=== PATIENT | female | born 1960 | race Caucasian/White ===

== ENCOUNTER 2023-07-19 19:11 | Inpatient (IN) | payer MEDICARE, OTHER, SELFPAY ==
[2023-07-19] VITALS (14 sets, daily range): BP systolic 100–133; BP diastolic 45–82; BMI 40.9; BMI 38.7
[2023-07-19] MEDS: DUONEB 3 ML INH ×2 (13:25→15:53)
--- NOTE | 2023-07-19 14:13 | ED.GENMED ---
History of Present Illness
General
Chief Complaint: Cold/Flu/URI Symptoms
Source: patient, ambulance crew and care home
Exam Limitations: none
Time Seen by Provider: 07/19/23 12:04
Nursing documentation reviewed up to this point in time: agreed with
Travel History
Have you had any contact with someone who has COVID-19?: No
Do you have any symptoms of coronavirus? Fever > 100 degrees, chills, cough, shortness of breath, sore throat, loss of taste or smell, muscle aches, or headache?: Yes
Symptoms:: cough
History of Present Illness
History of Present Illness:
62-year-old female with past medical history of diabetes and schizophrenia presenting to the emergency department from [facility] with concerns of upper respiratory symptoms and feeling generalized weakness over the past few
weeks denies specific symptoms otherwise denies any chest pain nausea vomiting abdominal. She has noted some wheezing and shortness of breath.
Past History
Past History
ED Past Medical History: Psychiatric (Schizophrenia)
ED Past Surgical History: Gynecological (Tubal ligation)
Social History
Tobacco: Non-smoker
Alcohol: None
Review of Systems
Review of Systems
Allergies reviewed?: Yes
All Other Systems: ROS reviewed and negative except as documented in HPI and ROS
Phy Exam
Physical Exam
Physical Exam:
GENERAL: Alert , in no apparent distress
EYE: pupils equal and reactive
NECK: Supple, no significant adenopathy.
ENT: o/p clr, mmm.
CARDIAC: Regular rate and rhythm .
LUNGS: Expiratory wheezing diffusely otherwise good air movement
ABDOMEN: Soft, without focal tenderness, no r/g, no cvat
NEUROLOGICAL: Alert and oriented, no focal neuro deficits
SKIN: Warm and dry, skin intact.
MUSCULOSKELETAL: No edema, well perfused.
PSYCH: Normal and appropriate interaction.
Course
Orders/Labs/Results
Orders:
Orders
07/19/23 12:46
Dexamethasone Sod Phosphate [Decadron] 10 mg IV NOW STA
Ipratropium/Albuterol Sulfate [Duoneb] 3 ml INH R NOW STA
CR Chest - 2 Views Urgent
Comment:
Reason For Exam: sob
07/19/23 14:45
Urinalysis Reflex To Culture Urgent
Date Specimen was Collected: 07/19/23
Time Specimen was Collected: 14:33
Urine Microscopic Reflex Cult Urgent
Urine Culture Urgent
SHILPI Source: U
Specimen Description:
Date Specimen was Collected: 07/19/23
Time Specimen was Collected: 14:33
07/19/23 14:46
Complete Blood Count/With Diff Urgent
Comprehensive Metabolic Panel Urgent
Lactic Acid Q4H
Comment: CANCEL 2nd LACTIC ACID IF 1st LACTIC ACID IS LESS THAN 2
07/19/23 15:41
Ipratropium/Albuterol Sulfate [Duoneb] 3 ml INH R NOW ONE
07/19/23 15:56
COVID-19 Antigen Urgent
Source: Nasal Swab
Lactic Acid Q4H
Comment: CANCEL 2nd LACTIC ACID IF 1st LACTIC ACID IS LESS THAN 2
Influenza A+B Rapid Molecular Urgent
SHILPI Source: Nasal Swab
Specimen Description:
Abnormal Lab Results
07/19/23 07/19/23
14:45 14:46
Hgb 10.1 L g/dL
(12.0-16.0)
Hct 32.3 L %
(37.0-47.0)
MCV 73.9 L fL
(81.0-99.0)
MCH 23.1 L pg
(27.0-31.0)
MCHC 31.3 L g/dL
(33.0-37.0)
RDW 18.9 H %
(11.5-14.5)
Absolute Monos (auto) 0.8 H 10^3/uL
(0.1-0.6)
Lymphocytes % 16.7 L %
(20.5-51.1)
Monocytes % 10.6 H %
(1.7-9.3)
Glucose 116 H mg/dl
(70-99)
Total Protein 6.2 L g/dl
(6.3-8.2)
Urine Nitrite (Reflex) Positive A
(Negative)
Leukocyte Esterase Rfl 2+ A
(Negative)
Urine WBC (Reflex) 11-15 A /HPF
(0-5)
Urine Bacteria (Reflex) Moderate A
(Negative)
07/19/23 14:46
07/19/23 14:46
Vital Signs
Initial and Last Documented VS:
Initial Vital Signs
Temp Pulse Resp BP Pulse Ox
99.7 F 91 20 131/82 96
07/19/23 11:58 07/19/23 11:58 07/19/23 11:58 07/19/23 11:58 07/19/23 11:58
Last Documented Vital Signs
Temp Pulse Resp BP Pulse Ox
99.7 F 99 24 100/49 100
07/19/23 11:58 07/19/23 16:15 07/19/23 16:15 07/19/23 16:00 07/19/23 16:15
MDM/Problems Addressed
MDM/Problems Addressed:
62-year-old female presenting to the emergency department today with concerns of generalized weakness fatigue as well as upper respiratory symptoms over the past few days. Upon arrival here vital signs are normal patient in no distress patient does
have expiratory wheezing diffusely consistent with potential asthma exacerbation. She was started on nebulizer treatment as well as steroid. Symptoms improving after treatment however patient did get up to go to the bathroom and pulse ox dropping
into the 80s and patient felt short of breath. Given additional dose of DuoNeb will be admitted for further treatment. She also tested positive for the flu but otherwise labs unremarkable.
*Critical Care Note
Total Time (30-74mins, 75-104mins- exclusive of procedures): Not Applicable
ED Attending Note
-
Portions of this chart may have been created with voice recognition software.� Occasional wrong word or��sound alike� substitutions may have occurred due to the inherent limitations of voice recognition software.
Discharge Plan
Departure
Patient Disposition: Admit
Date of Disposition: 07/19/23
Time of Disposition: 16:58
Admit to: Telemetry
Admit to doctor: Natasha
Presentation/result/management discussed w/ accepting MD/DO: Hospitalist
Patient with high blood pressure during this ER visit?: No
Condition: Good
Covid-19: Not Applicable
Discharge Problem:
Wheeze, Influenza
Prescriptions:
No Action
doxycycline hyclate 100 mg capsule
100 mg PO BID Qty: 14 0RF
Referrals:
PRIVATE,PHYSICIAN [Family Provider] -
Interventions
Interventions:
ED- Pulmonary Assessment Last Done: 07/19/23 12:04
[2023-07-19] MEDS: DECADRON 10 MG IV (14:41)
[2023-07-19 14:56] LABS: % Basophils 0.7 % (0-2); % Eosinophils 5.3 % (0-6); % Immature Granulocytes 0.5 % (0-0.5); % Lymphocytes 16.7 % (20.5-51.1); % Monocytes 10.6 % (1.7-9.3); % Neutrophils 66.2 % (42.2-75.2); Absolute Basophils 0.1 10^3/uL (0-0.2); Absolute Eosinophils 0.4 10^3/uL (0-0.7); Absolute Lymphocytes 1.3 10^3/uL (1.2-3.4); Absolute Monocytes 0.8 10^3/uL (0.1-0.6); Hematocrit 32.3 % (37.0-47.0); Hemoglobin 10.1 g/dL (12.0-16.0); Mean Corp Hgb Conc. 31.3 g/dL (33.0-37.0); Mean Corpuscular Hgb 23.1 pg (27.0-31.0); Mean Corpuscular Volume 73.9 fL (81.0-99.0); Mean Platelet Volume 8.5 fL (7.4-10.4); Nucleated Red Blood Cells % 0 %; Platelet Count 272 10^3/uL (130-400); Red Blood Cell Count 4.37 10^6/uL (4.20-5.40); Red Cell Dist. Width 18.9 % (11.5-14.5); White Blood Cell Count 7.6 10^3/uL (4.8-10.8)
[2023-07-19 14:58] LABS: Urine Albumin Negative (Neg - Trace); Urine Bilirubin Negative (Negative); Urine Character Clear (Clear); Urine Color Yellow; Urine Glucose Negative (Negative); Urine Ketone Negative (Negative); Urine Leukocyte 2+ (Negative); Urine Nitrite Positive (Negative); Urine Occult Blood Negative (Negative); Urine Urobilinogen Negative (Neg - 1+)
[2023-07-19 15:12] LABS: Urine Amorphous Seen; Urine Squamous Cell >30 /LPF (Few)
[2023-07-19 15:14] LABS: Urine Bacteria Moderate (Negative); Urine Red Blood Cell 0-2 /HPF (0-2)
[2023-07-19 15:15] LABS: Lactic Acid 1.6 mmol/L (0.7-2.0)
[2023-07-19 15:30] LABS: ALT (SGPT) 15 U/L (0-35); AST (SGOT) 15 U/L (14-36); Albumin 3.6 g/dl (3.5-5.0); Alkaline Phosphatase 84 U/L (38-126); Blood Urea Nitrogen 11 mg/dl (7-17); Calcium 8.4 mg/dl (8.4-10.2); Carbon Dioxide 29 mmol/L (22-30); Chloride 102 mmol/L (98-107); Estimated Creatinine Clearance 113 ml/min; Glucose 116 mg/dl (70-99); Potassium 3.9 mmol/L (3.5-5.1); Sodium 136 mmol/L (135-145); Total Bilirubin 0.4 mg/dl (0.2-1.3); Total Protein 6.2 g/dl (6.3-8.2); eGFR > 60.00
--- NOTE | 2023-07-19 16:06 | HPS.HSE ---
Family Physician
-
Family Physician: PHYSICIAN PRIVATE
Chief Complaint
-
Shortness of breath
History of Present Illness
Poor historian most if not all history from records ED sign out and primary contact report
62 female [id number]-[id number] diabetes schizophrenia, from [facility], hypertension, hypothyroidism, asthma presents with generalized weakness exertional dyspnea wheezing reported fever unclear onset. Patient reports that
she has bad shortness of breath fever for a 'long time.' Afebrile during evaluation here. Shortness of breath was noted to improve following DuoNeb therapy. However patient exhibited significant exertional dyspnea desaturating to 80s on
ambulation prompting referral for admission. Patient awake alert oriented only to self. Discussed with patient's primary contact Shira, onset of shortness of breath start in the morning triggering prompt referral to ED. No recent fever was
noted. CXR noted atelectasis otherwise no acute abn's. Labs noted mild microcytic anemia. Patient was found to be Flu positive.
Medical History
Past Medical History
Past Medical History: Reports Other (as above)
Past Surgical History: Reports Other (as above)
Social History
Tobacco: Former Smoker
Alcohol: None
Drug: None
Family History
Family History: Unable to Obtain (poor historian)
Allergies / Home Medications
Allergies reflects when Allergies were last updated in [facility].
Home Medications with original date entered in [facility] [employer]
Allergy/Medication List:
Allergies
Allergy/AdvReac Type Severity Reaction Status Date / Time
Penicillins Allergy Unknown Verified 07/19/23 12:02
Home Medications
acetaminophen 325 mg tablet 325 - 650 mg PO Q6H PRN mild pain/fever 07/19/23
albuterol sulfate 90 mcg/actuation aerosol inhaler 2 puff inhalation R Q4HPRN PRN sob/wheezing 07/19/23
amantadine HCl 100 mg capsule 100 mg PO BID 07/19/23
amlodipine 10 mg tablet 10 mg PO DAILY 07/19/23
aspirin 81 mg tablet,delayed release 81 mg PO DAILY 07/19/23
calcium carbonate 300 mg (750 mg) chewable tablet (Tums) 300 - 600 mg PO QID PRN indigestion/heartburn 07/19/23
clonazepam 1 mg tablet 1 mg PO TID 07/19/23
clozapine 100 mg tablet 300 mg PO HS 07/19/23
clozapine 50 mg tablet 50 mg PO DAILY 07/19/23
divalproex 500 mg tablet,extended release 24 hr 500 mg PO HS 07/19/23
famotidine 20 mg tablet 20 mg PO Q12H PRN heartburn/gi issues 07/19/23
lactase 9,000 unit chewable tablet (Dairy Relief) 9,000 - 18,000 unit PO AC 07/19/23
levothyroxine 50 mcg tablet 50 mcg PO DAILY 07/19/23
melatonin 3 mg tablet 3 mg PO HS 07/19/23
metformin 500 mg tablet 1,000 mg PO BID@0800,1400 07/19/23
oxybutynin chloride 5 mg tablet 5 mg PO BID 07/19/23
sertraline 25 mg tablet 25 mg PO DAILY 07/19/23
simvastatin 40 mg tablet 40 mg PO HS 07/19/23
trazodone 50 mg tablet 50 mg PO HS 07/19/23
Review of Systems
-
Unable to obtain full review of systems at this time due to: Other (Poor historian review of system unreliable)
Physical Exam
Vital Signs
Vital Signs
Temp Pulse Resp BP Pulse Ox
99.7 F 96 23 126/59 96
07/19/23 11:58 07/19/23 14:59 07/19/23 14:59 07/19/23 14:59 07/19/23 14:59
Physical Exam
General: Other (as below)
Laboratory Results
-
07/19/23 14:46
07/19/23 14:46
Laboratory Results
Lactic Acid 1.6 mmol/L (0.7-2.0) 07/19/23 14:46
Total Bilirubin 0.4 mg/dl (0.2-1.3) 07/19/23 14:46
AST 15 U/L (14-36) 07/19/23 14:46
ALT 15 U/L (0-35) 07/19/23 14:46
Alkaline Phosphatase 84 U/L (38-126) 07/19/23 14:46
Impression/Plan
-
Physical Exam
General: No pallor, cyanosis, or jaundice. Obese
HEENT: Throat clear. PERRLA Normocephalic atraumatic
NECK: Supple. No JVD Carotid Bruits
RESPIRATORY: wheezing
CVS: sinus tachy
ABDOMEN: Soft, non-tender. No distension. BS+/normal.
EXTREMITIES: No peripheral cyanosis or edema.
COMMONWEALTH ATTORNEY: AOx1 oriented to person only verbal but doesn't always make sense (appears near baseline per discussion with primary contact)
IMPRESSION:
Poor historian most if not all history from records ED sign out and primary contact report
62 female [id number]-[id number] diabetes schizophrenia, from [facility], hypertension, hyperlipidemia, hypothyroidism, overactive bladder, asthma presents with generalized weakness exertional dyspnea wheezing reported fever
unclear onset. Patient reports that she has bad shortness of breath fever for a 'long time.' Afebrile during evaluation here. Shortness of breath was noted to improve following DuoNeb therapy. However patient exhibited significant exertional
dyspnea desaturating to 80s on ambulation prompting referral for admission. Patient awake alert oriented only to self. Discussed with patient's primary contact Shira, onset of shortness of breath start in the morning triggering prompt referral
to ED. No recent fever was noted. CXR noted atelectasis otherwise no acute abn's. Labs noted mild microcytic anemia. Patient was found to be Flu positive.
PLAN:
#Flu
#Asthma exacerbation
Telemetry admitted
Oxygen supplementation as needed
Nebulizer Xopenex 3 times daily instead of albuterol due to tachycardia
Tamiflu 75 mg twice daily, plan for 5 days
IV steroids Decadron 4 mg every 8, taper as tolerated
#Hypertension
Continue home amlodipine with holding parameters
#Hypothyroidism
Continue home Synthroid
#Schizophrenia
Continue home clonazepam clonidine sertraline trazodone valproate
#Overactive bladder
Continue oxybutynin
PT OT eval
Case management consult discharge planning
DVT prophylaxis Lovenox
GI prophylaxis Famotidine
Meds reconciled and resume as appropriate
Discussed with primary contact Shira as listed in [facility] [employer]
I spent a total of 77 minutes with the patient or on the floor. More than 50% of this time involved counseling and coordination of care.
[2023-07-19 16:23] LABS: Lactic Acid 1.2 mmol/L (0.7-2.0)
[2023-07-19 16:32] LABS: COVID-19 Antigen Negative (Negative)
[2023-07-19] MEDS: XOPENEX 1.25 MG INHALANT SOLUTION INH (21:43)
[2023-07-19] MEDS: DITROPAN 5 MG PO (22:27)
[2023-07-19] MEDS: PEPCID 20 MG PO (22:28)
[2023-07-19] MEDS: SYMMETREL 100 MG PO (22:30)
[2023-07-19] MEDS: TAMIFLU 75 MG PO (22:32)
[2023-07-19] MEDS: DECADRON 4 MG IV (22:33)
[2023-07-19] MEDS: CLOZARIL 300 MG PO (22:40)
[2023-07-19] MEDS: DEPAKOTE ER (24 HR RELEASE) 500 MG PO (22:42)
[2023-07-19] MEDS: DESYREL 50 MG PO (22:44)
[2023-07-19] MEDS: KLONOPIN 1 MG PO (22:45)
[2023-07-19] MEDS: LIPITOR 20 MG PO (22:46)
[2023-07-19] MEDS: MELATONIN 3 MG PO (22:47)
[2023-07-20 03:09] VITALS: BP 126/71
[2023-07-20] MEDS: DECADRON 4 MG IV ×2 (04:57→13:03)
[2023-07-20 05:24] LABS: Hematocrit 33.8 % (37.0-47.0); Hemoglobin 10.5 g/dL (12.0-16.0); Mean Corp Hgb Conc. 31.1 g/dL (33.0-37.0); Mean Corpuscular Hgb 22.8 pg (27.0-31.0); Mean Corpuscular Volume 73.5 fL (81.0-99.0); Mean Platelet Volume 8.7 fL (7.4-10.4); Platelet Count 307 10^3/uL (130-400); Red Cell Dist. Width 18.8 % (11.5-14.5); White Blood Cell Count 5.8 10^3/uL (4.8-10.8)
[2023-07-20 05:38] LABS: Blood Urea Nitrogen 15 mg/dl (7-17); Calcium 8.7 mg/dl (8.4-10.2); Carbon Dioxide 26 mmol/L (22-30); Chloride 106 mmol/L (98-107); Estimated Creatinine Clearance 109 ml/min; Glucose 152 mg/dl (70-99); Iron 35 ug/dl (37-170); Magnesium 2.1 mg/dl (1.6-2.3); Potassium 4.5 mmol/L (3.5-5.1); Sodium 139 mmol/L (135-145); eGFR > 60.00
[2023-07-20 05:47] LABS: Percent Saturation 8 % (20-50); Total Iron Binding Capacity 423 ug/dl (265-497)
[2023-07-20 06:00] VITALS: BMI 38.6
[2023-07-20] MEDS: SYNTHROID 50 MCG PO (06:13)
[2023-07-20 06:34] LABS: Vitamin B12 421 pg/ml (239-931)
[2023-07-20 07:00] VITALS: BP 140/79
--- NOTE | 2023-07-20 07:35 | W.PN.HOSP.TC ---
Today's Communication/Plan
-
steroids bronchodilators tamiflu
wean oxygen supplementation as tolerated
clonopin reduced to 0.75 mg TID d/t lethargy
PT/OT
Assessment / Plan
Assessment / Plan
Physical Exam
General: No pallor, cyanosis, or jaundice. Obese
HEENT: Throat clear. PERRLA Normocephalic atraumatic
NECK: Supple. No JVD Carotid Bruits
RESPIRATORY: wheezing
CVS: sinus tachy
ABDOMEN: Soft, non-tender. No distension. BS+/normal.
EXTREMITIES: No peripheral cyanosis or edema.
TRACK EQUIPMENT OPERATOR: AOx1 oriented to person only verbal but doesn't always make sense (appears near baseline per discussion with primary contact)
IMPRESSION:
Poor historian most if not all history from records ED sign out and primary contact report
62 female [id number] diabetes schizophrenia, from [facility], hypertension, hyperlipidemia, hypothyroidism, overactive bladder, asthma presents with generalized weakness exertional dyspnea wheezing reported fever
unclear onset.� Patient reports that she has bad shortness of breath fever for a 'long time.'� Afebrile during evaluation here.� Shortness of breath was noted to improve following DuoNeb therapy.� However patient exhibited significant exertional
dyspnea desaturating to 80s on ambulation prompting referral for admission.� Patient awake alert oriented only to self.� Discussed with patient's primary contact Shira, onset of shortness of breath start in the morning triggering prompt referral
to ED.� No recent fever was noted. CXR noted atelectasis otherwise no acute abn's.� Labs noted mild microcytic anemia.� Patient was found to be Flu positive.
PLAN:
#Flu
#Asthma exacerbation
Telemetry admitted
Oxygen supplementation as needed
Nebulizer Xopenex 3 times daily instead of albuterol due to tachycardia
Tamiflu 75 mg twice daily, plan for 5 days
IV steroids Decadron 4 mg every 8, taper as tolerated
#Hypertension
Continue home amlodipine with holding parameters
#Hypothyroidism
Continue home Synthroid
#Schizophrenia
Continue home clonazepam clonidine sertraline trazodone valproate
home klonopin reduced to 0.75 mg TID from 1 mg due to lethargy
#Overactive bladder
Continue oxybutynin
PT OT eval SNF rehab
Case management consult discharge planning
DVT prophylaxis Lovenox
GI prophylaxis Famotidine
Meds reconciled and resume as appropriate
I spent a total of� 56� � minutes with the patient or on the floor. More than 50% of this time involved counseling and coordination of care.
Anticipated Discharge: 24 - 48 hours
Subjective/Interval History
-
Date of Service: July 20, 2023
Lethargic but arousable. Fluent speech but tangential. Reports having leprosy of legs. no obvious signs leprosy noted on observation.
Objective Data
-
Labs:
Laboratory Results
07/20/23
05:05
WBC 5.8
Hgb 10.5 L
Hct 33.8 L
Plt Count 307
Sodium 139
Potassium 4.5
Chloride 106
Carbon Dioxide 26
BUN 15
Creatinine 0.5 L
Glucose 152 H
Calcium 8.7
Vital Signs:
Vital Signs
Temp Pulse Resp BP Pulse Ox
98.0 F 81 22 126/71 95
07/20/23 03:09 07/20/23 03:09 07/20/23 03:09 07/20/23 03:09 07/20/23 03:09
I&O
07/19/23 07/20/23 07/21/23
06:59 06:59 06:59
Intake Total 420 / 420
Balance 420 / 420
[2023-07-20] MEDS: XOPENEX 1.25 MG INHALANT SOLUTION INH ×3 (07:52→19:44)
[2023-07-20] MEDS: TAMIFLU 75 MG PO ×2 (09:00→20:57)
[2023-07-20] MEDS: SYMMETREL 100 MG PO ×2 (09:00→20:56)
[2023-07-20] MEDS: GLUCOPHAGE 1000 MG PO ×2 (09:01→13:04)
[2023-07-20] MEDS: ZOLOFT 25 MG PO (09:01)
[2023-07-20] MEDS: NORVASC 10 MG PO (09:01)
[2023-07-20] MEDS: ASPIR LOW (ENTERIC COATED) 81 MG PO (09:01)
[2023-07-20] MEDS: KLONOPIN 1 MG PO (09:01)
[2023-07-20] MEDS: DITROPAN 5 MG PO ×2 (09:02→20:56)
[2023-07-20] MEDS: CLOZARIL 50 MG PO (09:02)
[2023-07-20] MEDS: PEPCID 20 MG PO ×2 (09:02→20:57)
[2023-07-20] MEDS: LACTAID 1 CAPSULE PO ×2 (09:02→13:03)
[2023-07-20] MEDS: FEOSOL 325 MG PO (09:04)
[2023-07-20 11:00] VITALS: BP 126/65
[2023-07-20 15:00] VITALS: BP 138/67
[2023-07-20] MEDS: LACTAID PO (16:40)
[2023-07-20] MEDS: KLONOPIN PO (16:41)
--- NOTE | 2023-07-20 16:45 | CM ---
Received notification from Isidra at [facility] who stated that patient is current with their services. Will fax new referral for [facility].
Plan: Case management will continue to follow and assist with discharge planning. Will fax [facility].
[2023-07-20] MEDS: LOVENOX 40 MG SC (17:16)
[2023-07-20 19:00] VITALS: BP 114/53
[2023-07-20] MEDS: DEPAKOTE ER (24 HR RELEASE) 500 MG PO (20:57)
[2023-07-20] MEDS: KLONOPIN 0.75 MG PO (21:06)
[2023-07-20] MEDS: MELATONIN 3 MG PO (21:07)
[2023-07-20] MEDS: DESYREL 50 MG PO (21:07)
[2023-07-20] MEDS: LIPITOR 20 MG PO (21:07)
[2023-07-20] MEDS: CLOZARIL 300 MG PO (21:33)
[2023-07-20 23:00] VITALS: BP 96/48
[2023-07-21 03:00] VITALS: BP 134/70
--- NOTE | 2023-07-21 05:05 | VATNOTE ---
VAT attempted to draw morning labs from [facility], patient refused. This VAT RN explained to patient she did not need to get a needle to check for a blood return for lab work patient still refused. Primary RN notified. No labs obtained at this time,
unknown if [facility] has a blood return.
[2023-07-21 06:00] VITALS: BMI 39.2
[2023-07-21 07:00] VITALS: BP 149/84
[2023-07-21] MEDS: SYNTHROID 50 MCG PO (07:21)
--- NOTE | 2023-07-21 07:36 | W.PN.HOSP.TC ---
Today's Communication/Plan
-
steroid tapered to Prednisone to start tomorrow
wean oxygen supplementation as tolerated
cont tamiflu
discharge planning SNF rehab
Assessment / Plan
Assessment / Plan
Physical Exam
General: No pallor, cyanosis, or jaundice. Obese
HEENT: Throat clear. PERRLA Normocephalic atraumatic
NECK: Supple. No JVD Carotid Bruits
RESPIRATORY: wheezing
CVS: sinus tachy
ABDOMEN: Soft, non-tender. No distension. BS+/normal.
EXTREMITIES: No peripheral cyanosis or edema.
RESOURCE CONSERVATIONIST: AOx1 oriented to person only verbal but doesn't always make sense (appears near baseline per discussion with primary contact)
IMPRESSION:
Poor historian most if not all history from records ED sign out and primary contact report
62 female [id number]-[id number] diabetes schizophrenia, from [facility], hypertension, hyperlipidemia, hypothyroidism, overactive bladder, asthma presents with generalized weakness exertional dyspnea wheezing reported fever
unclear onset.� Patient reports that she has bad shortness of breath fever for a 'long time.'� Afebrile during evaluation here.� Shortness of breath was noted to improve following DuoNeb therapy.� However patient exhibited significant exertional
dyspnea desaturating to 80s on ambulation prompting referral for admission.� Patient awake alert oriented only to self.� Discussed with patient's primary contact Shira, onset of shortness of breath start in the morning triggering prompt referral
to ED.� No recent fever was noted. CXR noted atelectasis otherwise no acute abn's.� Labs noted mild microcytic anemia.� Patient was found to be Flu positive.
PLAN:
#Flu
#Asthma exacerbation
Telemetry admitted
Oxygen supplementation as needed
Nebulizer Xopenex 3 times daily instead of albuterol due to tachycardia
Tamiflu 75 mg twice daily, plan for 5 days
IV steroids Decadron 4 mg every 8 tapered to Q12 tolerated well, further tapered to prednisone 40 mg daily
#Hypertension
Continue home amlodipine with holding parameters
#Hypothyroidism
Continue home Synthroid
#Schizophrenia
Continue home clonazepam clonidine sertraline trazodone valproate
home klonopin reduced to 0.75 mg TID from 1 mg due to lethargy, continue 0.75
#Overactive bladder
Continue oxybutynin
PT OT eval SNF rehab
Case management consult discharge planning
DVT prophylaxis Lovenox
GI prophylaxis Famotidine
Meds reconciled and resume as appropriate
I spent a total of� 56� � minutes with the patient or on the floor. More than 50% of this time involved counseling and coordination of care.
Anticipated Discharge: 24 - 48 hours
Subjective/Interval History
-
Date of Service: July 21, 2023
Appears more alert and communicative today. Doesn't always make sense but seems baseline for patient per reports.
Objective Data
-
Labs:
Laboratory Results
07/21/23
06:00
WBC Pending
Hgb Pending
Hct Pending
Plt Count Pending
Sodium Pending
Potassium Pending
Chloride Pending
Carbon Dioxide Pending
BUN Pending
Creatinine Pending
Glucose Pending
Calcium Pending
Vital Signs:
Vital Signs
Temp Pulse Resp BP Pulse Ox
97.6 F 76 16 134/70 95
07/21/23 03:00 07/21/23 03:00 07/21/23 03:00 07/21/23 03:00 07/21/23 03:00
I&O
07/20/23 07/21/23 07/22/23
06:59 06:59 06:59
Intake Total 420 / 420 330 / 330
Balance 420 / 420 330 / 330
[2023-07-21] MEDS: XOPENEX 1.25 MG INHALANT SOLUTION INH ×3 (07:57→19:29)
[2023-07-21] MEDS: ASPIR LOW (ENTERIC COATED) 81 MG PO (09:02)
[2023-07-21] MEDS: SYMMETREL 100 MG PO ×2 (09:02→20:47)
[2023-07-21] MEDS: GLUCOPHAGE 1000 MG PO ×2 (09:02→13:00)
[2023-07-21] MEDS: TAMIFLU 75 MG PO ×2 (09:02→20:49)
[2023-07-21] MEDS: FEOSOL 325 MG PO (09:02)
[2023-07-21] MEDS: DITROPAN 5 MG PO ×2 (09:02→20:46)
[2023-07-21] MEDS: CLOZARIL 50 MG PO (09:03)
[2023-07-21] MEDS: ZOLOFT 25 MG PO (09:03)
[2023-07-21] MEDS: NORVASC 10 MG PO (09:04)
[2023-07-21] MEDS: PEPCID 20 MG PO ×2 (09:04→20:51)
[2023-07-21] MEDS: KLONOPIN 0.75 MG PO ×3 (09:04→22:39)
[2023-07-21] MEDS: DECADRON 4 MG IV ×2 (09:05→20:39)
[2023-07-21] MEDS: LACTAID 1 CAPSULE PO ×3 (09:05→16:06)
[2023-07-21 11:00] VITALS: BP 147/83
[2023-07-21 15:00] VITALS: BP 136/78
[2023-07-21] MEDS: LOVENOX 40 MG SC (17:55)
[2023-07-21 19:00] VITALS: BP 105/71
[2023-07-21] MEDS: CLOZARIL 300 MG PO (22:33)
[2023-07-21] MEDS: DEPAKOTE ER (24 HR RELEASE) 500 MG PO (22:35)
[2023-07-21] MEDS: DESYREL 50 MG PO (22:36)
[2023-07-21 22:50] VITALS: BP 135/81
[2023-07-21] MEDS: MELATONIN 3 MG PO (22:50)
[2023-07-21] MEDS: LIPITOR 20 MG PO (22:50)
[2023-07-22 03:00] VITALS: BP 114/53
[2023-07-22 03:47] VITALS: BMI 39.2
[2023-07-22] MEDS: SYNTHROID 50 MCG PO (06:17)
--- NOTE | 2023-07-22 07:19 | W.PN.HOSP.TC ---
Today's Communication/Plan
-
steroid taper
Tamiflu
Medically stable for discharge SNF rehab pending placement
Assessment / Plan
Assessment / Plan
Physical Exam
General: No pallor, cyanosis, or jaundice. Obese
HEENT: Throat clear. PERRLA Normocephalic atraumatic
NECK: Supple. No JVD Carotid Bruits
RESPIRATORY: wheezing
CVS: sinus tachy
ABDOMEN: Soft, non-tender. No distension. BS+/normal.
EXTREMITIES: No peripheral cyanosis or edema.
PRODUCT MGR: AOx1 oriented to person only verbal but doesn't always make sense (appears near baseline per discussion with primary contact)
IMPRESSION:
Poor historian most if not all history from records ED sign out and primary contact report
62 female qwj-svnumnu-fufrbzyqi diabetes schizophrenia, from [facility], hypertension, hyperlipidemia, hypothyroidism, overactive bladder, asthma presents with generalized weakness exertional dyspnea wheezing reported fever
unclear onset.� Patient reports that she has bad shortness of breath fever for a 'long time.'� Afebrile during evaluation here.� Shortness of breath was noted to improve following DuoNeb therapy.� However patient exhibited significant exertional
dyspnea desaturating to 80s on ambulation prompting referral for admission.� Patient awake alert oriented only to self.� Discussed with patient's primary contact Shira, onset of shortness of breath start in the morning triggering prompt referral
to ED.� No recent fever was noted. CXR noted atelectasis otherwise no acute abn's.� Labs noted mild microcytic anemia.� Patient was found to be Flu positive.
PLAN:
#Flu
#Asthma exacerbation
Telemetry admitted
Nebulizer Xopenex 3 times daily instead of albuterol due to tachycardia, patient since improved, xopenex converted to prn
Tamiflu 75 mg twice daily, plan for 5 days
IV steroids Decadron 4 mg every 8 tapered to Q12 tolerated well, further tapered to prednisone 40 mg daily
#Hypertension
Continue home amlodipine with holding parameters
#Hypothyroidism
Continue home Synthroid
#Schizophrenia
Continue home clonazepam clonidine sertraline trazodone valproate
home klonopin reduced to 0.75 mg TID from 1 mg due to lethargy, continue 0.75
#Overactive bladder
Continue oxybutynin
PT OT eval SNF rehab
Case management consult discharge planning
DVT prophylaxis Lovenox
GI prophylaxis Famotidine
Medically stable for discharge SNF rehab pending placement
I spent a total of� 56� � minutes with the patient or on the floor. More than 50% of this time involved counseling and coordination of care.
Anticipated Discharge: Within 24 hours
Subjective/Interval History
-
Date of Service: July 22, 2023
Weaned off oxygen supplementation saturating well on room air. Home oxygen assessment noted no needs
Objective Data
-
Vital Signs:
Vital Signs
Temp Pulse Resp BP Pulse Ox
98 F 69 16 114/53 95
07/22/23 03:00 07/22/23 03:00 07/22/23 03:00 07/22/23 03:00 07/22/23 03:00
I&O
07/21/23 07/22/23 07/23/23
06:59 06:59 06:59
Intake Total 330 / 330 1010 / 1010
Balance 330 / 330 1010 / 1010
[2023-07-22] MEDS: XOPENEX 1.25 MG INHALANT SOLUTION INH ×3 (07:30→19:32)
[2023-07-22 07:54] VITALS: BP 139/81
[2023-07-22 08:12] VITALS: O2SAT 91; O2SAT 95
--- NOTE | 2023-07-22 08:13 | RESPNOTE ---
Attempted to perform ambulatory pulse ox on patient as per MD order. Patient requires significant two person assist to get out of bed. Patient unable to ambulate more than 15ft with rolling walker. Spo2 maureen RA resting 95%. Spo2 on ambulation on room
air 91%. Required no oxygen for duration of ambulation attempt.
[2023-07-22] MEDS: GLUCOPHAGE 1000 MG PO ×2 (08:36→15:19)
[2023-07-22] MEDS: ASPIR LOW (ENTERIC COATED) 81 MG PO (08:36)
[2023-07-22] MEDS: SYMMETREL 100 MG PO ×2 (08:36→20:23)
[2023-07-22] MEDS: DELTASONE 40 MG PO (08:36)
[2023-07-22] MEDS: CLOZARIL 50 MG PO (08:36)
[2023-07-22] MEDS: TAMIFLU 75 MG PO ×2 (08:36→20:24)
[2023-07-22] MEDS: LACTAID 1 CAPSULE PO ×3 (08:36→15:19)
[2023-07-22] MEDS: KLONOPIN 0.75 MG PO ×3 (08:36→21:17)
[2023-07-22] MEDS: FEOSOL 325 MG PO (08:36)
[2023-07-22] MEDS: NORVASC 10 MG PO (08:37)
[2023-07-22] MEDS: DITROPAN 5 MG PO ×2 (08:37→20:23)
[2023-07-22] MEDS: PEPCID 20 MG PO ×2 (08:37→20:24)
[2023-07-22] MEDS: ZOLOFT 25 MG PO (08:37)
[2023-07-22 11:00] VITALS: BP 126/65
[2023-07-22 15:00] VITALS: BP 139/69
[2023-07-22] MEDS: TUMS 2 TABLET PO (16:07)
[2023-07-22] MEDS: LOVENOX 40 MG SC (17:23)
[2023-07-22] MEDS: LIPITOR 20 MG PO (21:17)
[2023-07-22] MEDS: DEPAKOTE ER (24 HR RELEASE) 500 MG PO (21:18)
[2023-07-22] MEDS: MELATONIN 3 MG PO (21:18)
[2023-07-22] MEDS: CLOZARIL 300 MG PO (21:18)
[2023-07-22] MEDS: DESYREL 50 MG PO (21:33)
[2023-07-23 00:14] VITALS: BP 133/80
[2023-07-23] MEDS: SYNTHROID 50 MCG PO (05:35)
[2023-07-23 06:00] VITALS: BMI 37.8
[2023-07-23 07:40] VITALS: BP 127/78
--- NOTE | 2023-07-23 08:07 | W.PN.HOSP.TC ---
Today's Communication/Plan
-
Continue Tamiflu. Continue oral tapering steroids course. Discharge planning in progress.
Assessment / Plan
Assessment / Plan
Physical Exam
General: No pallor, cyanosis, or jaundice. Obese
HEENT: Throat clear. PERRLA Normocephalic atraumatic
NECK: Supple. No JVD Carotid Bruits
RESPIRATORY: wheezing
CVS: sinus tachy
ABDOMEN: Soft, non-tender. No distension. BS+/normal.
EXTREMITIES: No peripheral cyanosis or edema.
ANESTHETIST: AOx1 oriented to person only verbal but doesn't always make sense (appears near baseline per prior physician eval)
A/P:
#Flu
#Asthma exacerbation
Telemetry admitted
Nebulizer Xopenex 3 times daily instead of albuterol due to tachycardia, patient since improved, xopenex converted to prn
Tamiflu 75 mg twice daily, plan for 5 days
IV steroids Decadron 4 mg every 8 tapered to Q12 tolerated well, further tapered to prednisone 40 mg daily
#Hypertension
Continue home amlodipine with holding parameters
#Hypothyroidism
Continue home Synthroid
#Schizophrenia
Continue home clonazepam clonidine sertraline trazodone valproate
home klonopin reduced to 0.75 mg TID from 1 mg due to lethargy, continue 0.75
#Overactive bladder
Continue oxybutynin
PT OT eval SNF rehab
Case management consult discharge planning
DVT prophylaxis Lovenox
GI prophylaxis Famotidine
Medically stable for discharge SNF rehab pending placement
Anticipated Discharge: 24 - 48 hours
Subjective/Interval History
-
Date of Service: July 23, 2023
Patient seen and examined. Denies shortness of breath. Afebrile
Objective Data
-
Vital Signs:
Vital Signs
Temp Pulse Resp BP Pulse Ox
97.8 F 73 18 127/78 95
07/23/23 07:40 07/23/23 07:40 07/23/23 07:40 07/23/23 07:40 07/23/23 07:40
I&O
07/22/23 07/23/23 07/24/23
06:59 06:59 06:59
Intake Total 1010 / 1010 2420 / 2420
Balance 1010 / 1010 2420 / 2420
[2023-07-23] MEDS: DELTASONE 40 MG PO (08:11)
[2023-07-23] MEDS: SYMMETREL 100 MG PO ×2 (08:11→19:49)
[2023-07-23] MEDS: ZOLOFT 25 MG PO (08:11)
[2023-07-23] MEDS: GLUCOPHAGE 1000 MG PO ×2 (08:11→14:43)
[2023-07-23] MEDS: KLONOPIN 0.75 MG PO ×3 (08:11→22:57)
[2023-07-23] MEDS: CLOZARIL 50 MG PO (08:11)
[2023-07-23] MEDS: ASPIR LOW (ENTERIC COATED) 81 MG PO (08:11)
[2023-07-23] MEDS: NORVASC 10 MG PO (08:12)
[2023-07-23] MEDS: TAMIFLU 75 MG PO ×2 (08:12→19:59)
[2023-07-23] MEDS: PEPCID 20 MG PO ×2 (08:12→20:05)
[2023-07-23] MEDS: DITROPAN 5 MG PO ×2 (08:12→19:46)
[2023-07-23] MEDS: FEOSOL 325 MG PO (08:12)
[2023-07-23] MEDS: LACTAID 1 CAPSULE PO ×3 (08:15→17:02)
--- NOTE | 2023-07-23 09:39 | CM ---
Addendum entered by LORAINE Fish 07/23/23 14:03:
Sent Referrals to the following facilities with the knowledge of Niru from [facility]: [facility], [facility], [facility], [facility], [facility], [facility], [facility], [facility], [facility], and [facility].
Will need patient's guardian's signature on PASSR if accepting facility is found.
Original Note:
Reviewed chart, placed a call to [facility] to determine patient's baseline and if she can return there. Call was answered by the food checkers and cashiers supervisor, Niru who was able to provide some background. Patient lives at [facility] as part of [facility] which is their group
home. The residential has no steps to enter and one flight inside when the elevator is not working which is often. Niru expressed that patient has difficulty navigating steps. She has a dx Schizophrenia and Alzheimer's. She has a guardian named, Gwyn
Jeevan # [phone]. He handles of patient's affairs.
Niru stated that they were in the process of trying to find an NH for patient as her care has surpassed that of which the residential can handle. She needs assistance with bathing, dressing, personal care, toileting and all other ADLs. She uses a
walker for short distances and a w/c for community distances.
She has a bulk gas specialist who helps with cooking, cleaning, laundry and other supervising appraiser.
Per Niru, patient has 'behaviors' and can alternate between being loud and calm. Niru stated that when patient is calm she has a very sweet demeanor.
Per food checkers and cashiers supervisor patient has no friends or family. She does have three sons all of whom she lost custody of when she was young (the children were infants) and therefore she has very minimal contact with them.
Niru stated that patient would be unable to return to the residential and would need to be placed in an NH setting-possibly usp. She did go to [facility] in the past and she was current with [facility].
Niru confirmed that although patient needs transfer to an NH, she will still be a part of their services and the facility will continue to provide support, advocacy and the care that they can. As patient is deconditioned from her baseline, of which
the staff there already was having difficulty handling, per Niru she would not be able to return to their residential until she could at least get to the point that she was previous to what she was like prior to admission so patient may be a roasterman
care resident.
Niru was advised of level 2 PASSR requirements and she confirmed that patient's guardian will sign all necessary paperwork. She stated that her direct number is her cell, [phone]
Plan: Case management will continue to follow and assist with discharge planning. Will need SNF possible LTC. Patient will need a level 2 assessment and guardian will have to review and sign all paperwork.
[2023-07-23 15:33] VITALS: BP 135/81
[2023-07-23] MEDS: LOVENOX 40 MG SC (17:03)
[2023-07-23] MEDS: CLOZARIL 300 MG PO (22:48)
[2023-07-23] MEDS: DEPAKOTE ER (24 HR RELEASE) 500 MG PO (22:52)
[2023-07-23] MEDS: DESYREL 50 MG PO (22:54)
[2023-07-23] MEDS: LIPITOR 20 MG PO (23:08)
[2023-07-23] MEDS: MELATONIN 3 MG PO (23:09)
[2023-07-23 23:19] VITALS: BP 147/64
[2023-07-24 05:52] VITALS: BMI 38.2
[2023-07-24] MEDS: SYNTHROID 50 MCG PO (06:05)
[2023-07-24 07:00] VITALS: BP 140/65
--- NOTE | 2023-07-24 08:12 | W.PN.HOSP.TC ---
Today's Communication/Plan
-
Continue current management. Discharge planning in progress.
Assessment / Plan
Assessment / Plan
Physical Exam
General: No pallor, cyanosis, or jaundice. Obese
HEENT: Throat clear. PERRLA Normocephalic atraumatic
NECK: Supple. No JVD Carotid Bruits
RESPIRATORY: wheezing
CVS: sinus tachy
ABDOMEN: Soft, non-tender. No distension. BS+/normal.
EXTREMITIES: No peripheral cyanosis or edema.
FLAME HARDENING MACHINE OPERATOR: AOx1 oriented to person only verbal but doesn't always make sense (appears near baseline per prior physician eval)
A/P:
#Flu
#Asthma exacerbation
Telemetry admitted
Nebulizer Xopenex 3 times daily instead of albuterol due to tachycardia, patient since improved, xopenex converted to prn
Tamiflu 75 mg twice daily, plan for 5 days
IV steroids changed to oral
Currently prednisone 40 mg p.o. daily and will taper tomorrow down to 30 mg.
#Hypertension
Continue home amlodipine with holding parameters
#Hypothyroidism
Continue home Synthroid
#Schizophrenia
Continue home clonazepam clonidine sertraline trazodone valproate
home klonopin reduced to 0.75 mg TID from 1 mg due to lethargy, continue 0.75
#Overactive bladder
Continue oxybutynin
PT OT eval SNF rehab
Case management consult discharge planning
DVT prophylaxis Lovenox
GI prophylaxis Famotidine
Medically stable for discharge SNF rehab pending placement
Anticipated Discharge: Today
Subjective/Interval History
-
Date of Service: July 24, 2023
Patient feels well. No shortness of breath or cough.
Objective Data
-
Vital Signs:
Vital Signs
Temp Pulse Resp BP Pulse Ox
97.6 F 62 16 140/65 93
02/27/24 07:00 07/24/23 07:00 07/24/23 07:00 07/24/23 07:00 07/24/23 07:00
I&O
07/23/23 07/24/23 07/25/23
06:59 06:59 06:59
Intake Total 2420 / 2420 1020 / 1020
Output Total 725 / 725
Balance 2420 / 2420 295 / 295
Review of Systems
-
All other systems: Reviewed and negative
[2023-07-24] MEDS: ASPIR LOW (ENTERIC COATED) 81 MG PO (08:19)
[2023-07-24] MEDS: SYMMETREL 100 MG PO ×2 (08:19→20:09)
[2023-07-24] MEDS: NORVASC 10 MG PO (08:19)
[2023-07-24] MEDS: PEPCID 20 MG PO ×2 (08:19→20:09)
[2023-07-24] MEDS: LACTAID 1 CAPSULE PO ×3 (08:19→17:10)
[2023-07-24] MEDS: DELTASONE 40 MG PO (08:20)
[2023-07-24] MEDS: GLUCOPHAGE 1000 MG PO ×2 (08:20→13:03)
[2023-07-24] MEDS: CLOZARIL 50 MG PO (08:20)
[2023-07-24] MEDS: TAMIFLU 75 MG PO ×2 (08:20→20:09)
[2023-07-24] MEDS: FEOSOL 325 MG PO (08:20)
[2023-07-24] MEDS: DITROPAN 5 MG PO ×2 (08:20→20:09)
[2023-07-24] MEDS: KLONOPIN 0.75 MG PO ×3 (08:20→22:23)
[2023-07-24] MEDS: ZOLOFT 25 MG PO (08:21)
[2023-07-24 11:21] VITALS: BP 146/74
--- NOTE | 2023-07-24 13:16 | CM ---
Placed a call to patient's Guardian, Gwyn, who answered and stated that he can sign paperwork for patient. He requested that all faxes be faxed to [phone]. Faxed all forms to Gwyn.
Met with attending who signed his portion.
Will await for return fax from guardian so that fax can be sent to the [facility].
Plan: Case management will continue to follow and assist with discharge planning. Bed available at [facility].
[2023-07-24 15:00] VITALS: BP 123/57
[2023-07-24] MEDS: LOVENOX 40 MG SC (17:11)
[2023-07-24] MEDS: XOPENEX 1.25 MG INHALANT SOLUTION INH (19:24)
[2023-07-24] MEDS: DESYREL 50 MG PO (22:24)
[2023-07-24] MEDS: MELATONIN 3 MG PO (22:24)
[2023-07-24] MEDS: LIPITOR 20 MG PO (22:24)
[2023-07-24] MEDS: DEPAKOTE ER (24 HR RELEASE) 500 MG PO (22:24)
[2023-07-24] MEDS: CLOZARIL 300 MG PO (22:24)
[2023-07-24 23:40] VITALS: BP 146/74
[2023-07-25 00:21] VITALS: BP 146/74
[2023-07-25] MEDS: SYNTHROID 50 MCG PO (06:09)
[2023-07-25 06:33] LABS: Hematocrit 36.5 % (37.0-47.0); Hemoglobin 11.4 g/dL (12.0-16.0)
[2023-07-25 06:41] LABS: Blood Urea Nitrogen 20 mg/dl (7-17); Calcium 9.3 mg/dl (8.4-10.2); Carbon Dioxide 31 mmol/L (22-30); Chloride 102 mmol/L (98-107); Estimated Creatinine Clearance 93 ml/min; Glucose 114 mg/dl (70-99); Potassium 4.5 mmol/L (3.5-5.1); Sodium 139 mmol/L (135-145); eGFR > 60.00
[2023-07-25 07:15] VITALS: BP 126/57
--- NOTE | 2023-07-25 08:02 | W.PN.HOSP.TC ---
Today's Communication/Plan
-
Continue current management. Discharge planning in progress.
Assessment / Plan
Assessment / Plan
Physical Exam
General: No pallor, cyanosis, or jaundice. Obese
HEENT: Throat clear. PERRLA Normocephalic atraumatic
NECK: Supple. No JVD Carotid Bruits
RESPIRATORY: wheezing
CVS: sinus tachy
ABDOMEN: Soft, non-tender. No distension. BS+/normal.
EXTREMITIES: No peripheral cyanosis or edema.
MEAT SEAFOOD ASSOCIATE: AOx1 oriented to person only verbal but doesn't always make sense (appears near baseline per prior physician eval)
A/P:
#Flu
#Asthma exacerbation
Telemetry can be d/c'ed
Nebulizer Xopenex 3 times daily instead of albuterol due to tachycardia, patient since improved, xopenex converted to prn
Tamiflu --> completed 5 days
IV steroids changed to oral as below
Currently prednisone down to 30 mg p.o. daily.
#Hypertension
Continue home amlodipine with holding parameters
#Hypothyroidism
Continue home Synthroid
#Schizophrenia
Continue home clonazepam clonidine sertraline trazodone valproate
home klonopin reduced to 0.75 mg TID from 1 mg due to lethargy, continue 0.75
#Overactive bladder
Continue oxybutynin
PT OT eval SNF rehab
Case management consult discharge planning
DVT prophylaxis Lovenox
GI prophylaxis Famotidine
Medically stable for discharge SNF rehab pending placement
Anticipated Discharge: Today
Subjective/Interval History
-
Date of Service: July 25, 2023
Patient denies any chest pain or shortness of breath.
Objective Data
-
Labs:
Laboratory Results
07/25/23
05:56
Hgb 11.4 L
Hct 36.5 L
Sodium 139
Potassium 4.5
Chloride 102
Carbon Dioxide 31 H
BUN 20 H
Creatinine 0.7
Glucose 114 H
Calcium 9.3
Vital Signs:
Vital Signs
Temp Pulse Resp BP Pulse Ox
96.7 F L 61 16 126/57 94
07/25/23 07:15 07/25/23 07:15 07/25/23 07:15 07/25/23 07:15 07/25/23 07:15
I&O
07/24/23 07/25/23 07/26/23
06:59 06:59 06:59
Intake Total 1020 / 1020 1660 / 1660
Output Total 725 / 725 2450 / 2450
Balance 295 / 295 -790 / -790
[2023-07-25] MEDS: PEPCID 20 MG PO ×2 (08:35→19:43)
[2023-07-25] MEDS: ZOLOFT 25 MG PO (08:35)
[2023-07-25] MEDS: ASPIR LOW (ENTERIC COATED) 81 MG PO (08:35)
[2023-07-25] MEDS: GLUCOPHAGE 1000 MG PO ×2 (08:35→14:12)
[2023-07-25] MEDS: DITROPAN 5 MG PO ×2 (08:35→19:42)
[2023-07-25] MEDS: FEOSOL 325 MG PO (08:36)
[2023-07-25] MEDS: NORVASC 10 MG PO (08:36)
[2023-07-25] MEDS: CLOZARIL 50 MG PO (08:36)
[2023-07-25] MEDS: DELTASONE 30 MG PO (08:36)
[2023-07-25] MEDS: KLONOPIN 0.75 MG PO ×3 (08:41→21:34)
[2023-07-25] MEDS: SYMMETREL 100 MG PO ×2 (08:45→19:42)
[2023-07-25] MEDS: LACTAID 1 CAPSULE PO ×3 (08:45→16:32)
--- NOTE | 2023-07-25 09:12 | CM ---
Addendum entered by LORAINE Fish 07/25/23 15:18:
Placed a call to office on aging and spoke with a workforce services representative, named, Michelle who confirmed receipt of fax and stated that a dependency case manager will call back with a time to do the level 2 assessment.
Original Note:
Received fax from sid Pascal's guardian, who completed all the forms that were faxed to him. Placed a call to Office on Aging and spoke with someone named, Lynette, who stated that the level 2 should be faxed to [phone]. Faxed all requested
documents. Will await return call from them so that they can facilitate on site visit.
Plan: Case management will continue to follow and assist with discharge planning. Once cleared by the [facility], patient's guardian in agreement with SNF at [facility].
[2023-07-25 15:00] VITALS: BP 107/52
[2023-07-25] MEDS: LOVENOX 40 MG SC (17:21)
[2023-07-25] MEDS: MELATONIN 3 MG PO (21:35)
[2023-07-25] MEDS: CLOZARIL 300 MG PO (21:35)
[2023-07-25] MEDS: LIPITOR 20 MG PO (21:35)
[2023-07-25] MEDS: DEPAKOTE ER (24 HR RELEASE) 500 MG PO (21:35)
[2023-07-25] MEDS: DESYREL 50 MG PO (21:35)
[2023-07-25 23:00] VITALS: BP 139/72
[2023-07-26] MEDS: SYNTHROID 50 MCG PO (06:02)
[2023-07-26 07:26] VITALS: BP 137/78
[2023-07-26] MEDS: GLUCOPHAGE 1000 MG PO ×2 (07:27→13:28)
[2023-07-26] MEDS: LACTAID 1 CAPSULE PO ×3 (07:27→15:59)
[2023-07-26] MEDS: ZOLOFT 25 MG PO (07:27)
[2023-07-26] MEDS: ASPIR LOW (ENTERIC COATED) 81 MG PO (07:27)
[2023-07-26] MEDS: CLOZARIL 50 MG PO (07:27)
[2023-07-26] MEDS: DITROPAN 5 MG PO ×2 (07:27→20:29)
[2023-07-26] MEDS: DELTASONE 30 MG PO (07:27)
[2023-07-26] MEDS: KLONOPIN 0.75 MG PO ×3 (07:28→21:32)
[2023-07-26] MEDS: FEOSOL 325 MG PO (07:28)
[2023-07-26] MEDS: SYMMETREL 100 MG PO ×2 (07:29→20:29)
[2023-07-26] MEDS: NORVASC 10 MG PO (07:33)
--- NOTE | 2023-07-26 07:38 | W.PN.HOSP.TC ---
Today's Communication/Plan
-
Continue current management. Discharge planning in progress.
Assessment / Plan
Assessment / Plan
Physical Exam
General: No pallor, cyanosis, or jaundice. Obese
HEENT: Throat clear. PERRLA Normocephalic atraumatic
NECK: Supple. No JVD Carotid Bruits
RESPIRATORY: wheezing
CVS: sinus tachy
ABDOMEN: Soft, non-tender. No distension. BS+/normal.
EXTREMITIES: No peripheral cyanosis or edema.
BRINE TANK OPERATOR: AOx1 oriented to person only verbal but doesn't always make sense (appears near baseline per prior physician eval)
A/P:
#Flu
#Asthma exacerbation
Telemetry can be d/c'ed
Nebulizer Xopenex 3 times daily instead of albuterol due to tachycardia, patient since improved, xopenex converted to prn
Tamiflu --> completed 5 days
IV steroids changed to oral as below
Currently prednisone down to 30 mg p.o. daily.
#Constipation
Start bowel regimen
#Hypertension
Continue home amlodipine with holding parameters
#Hypothyroidism
Continue home Synthroid
#Schizophrenia
Continue home clonazepam clonidine sertraline trazodone valproate
home klonopin reduced to 0.75 mg TID from 1 mg due to lethargy, continue 0.75
#Overactive bladder
Continue oxybutynin
PT OT eval SNF rehab
Case management consult discharge planning
DVT prophylaxis Lovenox
GI prophylaxis Famotidine
Medically stable for discharge SNF rehab pending placement
Anticipated Discharge: Today
Subjective/Interval History
-
Date of Service: July 26, 2023
No chest pain or shortness of breath. RN reports some constipation.
Objective Data
-
Vital Signs:
Vital Signs
Temp Pulse Resp BP Pulse Ox
97.9 F 60 16 137/78 91
07/26/23 07:26 07/26/23 07:26 07/26/23 07:26 07/26/23 07:26 07/26/23 07:26
I&O
07/25/23 07/26/23 07/27/23
06:59 06:59 06:59
Intake Total 1660 / 1660 900 / 900
Output Total 2450 / 2450 2150 / 2150
Balance -790 / -790 -1250 / -1250
[2023-07-26] MEDS: PEPCID 20 MG PO ×2 (07:45→20:29)
[2023-07-26 10:30] VITALS: BP 122/61; PULSE 68; O2SAT 94
[2023-07-26] MEDS: MIRALAX 17 GRAMS PO (11:32)
[2023-07-26] MEDS: COLACE 100 MG PO ×2 (11:32→20:29)
[2023-07-26 15:47] VITALS: BP 118/77
[2023-07-26] MEDS: LOVENOX 40 MG SC (17:41)
[2023-07-26] MEDS: DESYREL 50 MG PO (21:32)
[2023-07-26] MEDS: DEPAKOTE ER (24 HR RELEASE) 500 MG PO (21:32)
[2023-07-26] MEDS: MELATONIN 3 MG PO (21:32)
[2023-07-26] MEDS: LIPITOR 20 MG PO (21:33)
[2023-07-26] MEDS: CLOZARIL 300 MG PO (21:33)
[2023-07-26 23:03] VITALS: BP 128/66
[2023-07-27] MEDS: SYNTHROID 50 MCG PO (06:07)
[2023-07-27 08:00] VITALS: BP 131/85
--- NOTE | 2023-07-27 08:11 | W.PN.HOSP.TC ---
Today's Communication/Plan
-
Continue current management. Discharge planning in progress.
Assessment / Plan
Assessment / Plan
Physical Exam
General: No pallor, cyanosis, or jaundice. Obese
HEENT: Throat clear. PERRLA Normocephalic atraumatic
NECK: Supple. No JVD Carotid Bruits
RESPIRATORY: wheezing
CVS: sinus tachy
ABDOMEN: Soft, non-tender. No distension. BS+/normal.
EXTREMITIES: No peripheral cyanosis or edema.
MIXING AND MOLDING MACHINE OPERATOR: AOx1 oriented to person only verbal but doesn't always make sense (appears near baseline per prior physician eval)
A/P:
#Flu
#Asthma exacerbation
Telemetry can be d/c'ed
Nebulizer Xopenex 3 times daily instead of albuterol due to tachycardia, patient since improved, xopenex converted to prn
Tamiflu --> completed 5 days
IV steroids changed to oral as below
Currently prednisone down to 30 mg p.o. daily.
#Constipation
Continue bowel regimen
#Hypertension
Continue home amlodipine with holding parameters
#Hypothyroidism
Continue home Synthroid
#Schizophrenia
Continue home clonazepam clonidine sertraline trazodone valproate
home klonopin reduced to 0.75 mg TID from 1 mg due to lethargy, continue 0.75
assistant farm operations manager request psychiatry evaluation for placement--> consult to psychiatry today ([place] texted Dr. Puckett today on 07/26)
#Overactive bladder
Continue oxybutynin
PT OT eval SNF rehab
Case management consult discharge planning
DVT prophylaxis Lovenox
GI prophylaxis Famotidine
Medically stable for discharge SNF rehab pending placement
Anticipated Discharge: 24 - 48 hours
Subjective/Interval History
-
Date of Service: July 27, 2023
No behavioral agitation but does get restless at times and yells. No shortness of breath.
Objective Data
-
Vital Signs:
Vital Signs
Temp Pulse Resp BP Pulse Ox
97.8 F 65 18 128/66 93
07/26/23 23:03 07/26/23 23:03 07/26/23 23:03 07/26/23 23:03 07/26/23 23:03
I&O
07/26/23 07/27/23 07/28/23
06:59 06:59 06:59
Intake Total 900 / 900 1320 / 1320
Output Total 2150 / 2150 1450 / 1450
Balance -1250 / -1250 -130 / -130
[2023-07-27] MEDS: ASPIR LOW (ENTERIC COATED) 81 MG PO (08:14)
[2023-07-27] MEDS: ZOLOFT 25 MG PO (08:14)
[2023-07-27] MEDS: CLOZARIL 50 MG PO (08:14)
[2023-07-27] MEDS: SYMMETREL 100 MG PO ×2 (08:14→22:06)
[2023-07-27] MEDS: PEPCID 20 MG PO ×2 (08:14→22:09)
[2023-07-27] MEDS: GLUCOPHAGE 1000 MG PO ×2 (08:14→15:33)
[2023-07-27] MEDS: LACTAID 1 CAPSULE PO ×3 (08:14→16:29)
[2023-07-27] MEDS: FEOSOL 325 MG PO (08:15)
[2023-07-27] MEDS: DELTASONE 30 MG PO (08:15)
[2023-07-27] MEDS: DITROPAN 5 MG PO ×2 (08:15→22:09)
[2023-07-27] MEDS: NORVASC 10 MG PO (08:15)
[2023-07-27] MEDS: COLACE 100 MG PO ×2 (08:15→22:06)
[2023-07-27] MEDS: KLONOPIN 0.75 MG PO ×3 (08:16→22:10)
[2023-07-27] MEDS: MIRALAX 17 GRAMS PO (08:17)
--- NOTE | 2023-07-27 08:53 | CM ---
Addendum entered by LORAINE Fish 07/27/23 16:57:
Faxed updated referral with corrections and Psychiatry note. Will f/u with the office on aging first thing on Sunday to confirm receipt of all necessary documents.
Original Note:
Placed a call to the office on aging and call was answered by a sales support representative named, Afshan, who stated that she spoke with Kaela the supervisor corduroy cutting and she needs a little more information to be faxed. She stated that she emailed what she is misssing.
Will complete missing forms and return to Kaela.
Plan: Case management will continue to follow and assist with discharge planning. Will fax additional information to Kaela.
--- NOTE | 2023-07-27 11:53 | CON.MD ---
Consultation - Medical
-
patient seen chart reviewed. spoke with case mgt. nursing and with pharmacist. the patient is a 62 year old dx with schizophrenia who resides at the [facility]. she has been followed by [facility]. her current psych meds are as follows
Depakote 500 mg daily clozaril total 350 mg daily sertraline 25 mg daily and trazodone 50 mg daily. she had been taking klonopin one mg tid which was decreased to 0.75 mg tid as she appeared sedated. she is according to [facility] more alert at this point.
she was admitted with sob attributed to flu. she has been rx with bronchodilators tamiflu symmetrel and is improving. she did not appear in any physical distress. the patient is a notably poor historian. she is oriented to person only. when i told
her she was in a hospital she said 'which one.?' she when asked for the year told me she does not know what year it is. she offered no complaints. she is not having thoughts of harming self. she does hear voices in her head at times. she does not
experience command hallucinations rather they 'play hide and seek' although patient on zoloft she does not say she is depressed per se although affect quite constricted also a feature of schizophrenia
past psych hx checked the [facility] records. patient was last seen at [facility] by dr bosch. last date of service was 07/17/2023 at that time patient exhibited residual sx of schiz. she was noted by staff to be struggling with incontinence. also noted
adl's are slipping. the residence has been considering tf to a higher level of care which cw at is aware of. patient was referred to [facility] as a transfer from [facility] program. she had many hospitalizations in the past and lived at
[facility] for over a year until vt'ed to [facility] in 2000. she has been on many psych meds clozaril has apparently been the best for her
medical hx admitted for respiratory sx attributed to flu. patient w hx niddm overactive bladder hld htn hypothyroid copd gerd
fh sh non contributory
substance abuse none
mse alert oriented to person only. cognitively impaired either as a consequence of years of schizophrenia and /or other. pleasant. cooperative speech sparse. nl rate and tone. hears voices no command see above mood is neutral affect
constricted denies si insight judgment lacking
dx schizophrenia
plan agree with snf intervention perhaps as a prelude to superintendent marine oil terminal care. patient not presenting a risk to self or others . would continue meds as they are. might consider dc of zoloft or cutting klonopin back further but not imperative. check tsh
folic acid ecg for qtc which can happen with clozaril. psych will check in once over weekend and sign off if no further need for us.
[2023-07-27 14:59] VITALS: BP 130/69
[2023-07-27] MEDS: LOVENOX 40 MG SC (17:38)
--- NOTE | 2023-07-27 22:00 | PTCARENOTE ---
@2100; Attempted to do outstanding EKG. Pt refused to cooperate and did not want shirt lifted.@@2123 ;Instructed STEVEN Silva on above note.
[2023-07-27] MEDS: CLOZARIL 300 MG PO (22:07)
[2023-07-27] MEDS: DEPAKOTE ER (24 HR RELEASE) 500 MG PO (22:07)
[2023-07-27] MEDS: MELATONIN 3 MG PO (22:08)
[2023-07-27] MEDS: LIPITOR 20 MG PO (22:08)
[2023-07-27] MEDS: DESYREL 50 MG PO (22:10)
[2023-07-27 23:35] VITALS: BP 116/60
[2023-07-28] MEDS: SYNTHROID 50 MCG PO (05:06)
[2023-07-28 07:29] VITALS: BP 130/64
[2023-07-28] MEDS: COLACE 100 MG PO ×2 (08:00→22:37)
[2023-07-28] MEDS: ASPIR LOW (ENTERIC COATED) 81 MG PO (08:00)
[2023-07-28] MEDS: SYMMETREL 100 MG PO ×2 (08:00→22:38)
[2023-07-28] MEDS: DELTASONE 30 MG PO (08:00)
[2023-07-28] MEDS: ZOLOFT 25 MG PO (08:00)
[2023-07-28] MEDS: DITROPAN 5 MG PO ×2 (08:00→22:38)
[2023-07-28] MEDS: LACTAID 1 CAPSULE PO ×3 (08:00→16:36)
[2023-07-28] MEDS: GLUCOPHAGE 1000 MG PO ×2 (08:01→14:31)
[2023-07-28] MEDS: CLOZARIL 50 MG PO (08:01)
[2023-07-28] MEDS: KLONOPIN 0.75 MG PO ×3 (08:01→22:35)
[2023-07-28] MEDS: PEPCID 20 MG PO ×2 (08:01→22:37)
[2023-07-28] MEDS: NORVASC 10 MG PO (08:01)
[2023-07-28] MEDS: MIRALAX 17 GRAMS PO (08:02)
[2023-07-28] MEDS: FEOSOL 325 MG PO (08:02)
[2023-07-28 09:09] LABS: Folate 9.9 ng/ml (2.76-20)
--- NOTE | 2023-07-28 10:26 | W.PN.HOSP.TC ---
Today's Communication/Plan
-
Continue current management. Discharge planning in progress.
Assessment / Plan
Assessment / Plan
Physical Exam
General: No pallor, cyanosis, or jaundice. Obese
HEENT: Throat clear. PERRLA Normocephalic atraumatic
NECK: Supple. No JVD Carotid Bruits
RESPIRATORY: wheezing
CVS: sinus tachy
ABDOMEN: Soft, non-tender. No distension. BS+/normal.
EXTREMITIES: No peripheral cyanosis or edema.
REGROOVER: AOx1 oriented to person only verbal but doesn't always make sense (appears near baseline per prior physician eval)
A/P:
#Flu
#Asthma exacerbation
Telemetry can be d/c'ed
Nebulizer Xopenex 3 times daily instead of albuterol due to tachycardia, patient since improved, xopenex converted to prn
Tamiflu --> completed 5 days
IV steroids changed to oral as below
Currently prednisone down to 30 mg p.o. daily. Will taper down tomorrow.
#Constipation
Continue bowel regimen
#Hypertension
Continue home amlodipine with holding parameters
#Hypothyroidism
Continue home Synthroid
#Schizophrenia
Continue home clonazepam clonidine sertraline trazodone valproate
home klonopin reduced to 0.75 mg TID from 1 mg due to lethargy, continue 0.75
manager employment request psychiatry evaluation for placement--> psychiatry consult reviewed and appreciated.
#Overactive bladder
Continue oxybutynin
PT OT eval SNF rehab
Case management consult discharge planning
DVT prophylaxis Lovenox
GI prophylaxis Famotidine
Medically stable for discharge SNF rehab pending placement
Anticipated Discharge: 24 - 48 hours
Subjective/Interval History
-
Date of Service: July 28, 2023
No new complaints. No shortness of breath.
Objective Data
-
Vital Signs:
Vital Signs
Temp Pulse Resp BP Pulse Ox
97.6 F 63 16 130/64 94
07/28/23 07:29 07/28/23 08:01 07/28/23 07:29 07/28/23 08:01 07/28/23 07:29
I&O
07/27/23 07/28/23 07/29/23
06:59 06:59 06:59
Intake Total 1320 / 1320 1380 / 1380
Output Total 1450 / 1450 2450 / 2450
Balance -130 / -130 -1070 / -1070
[2023-07-28 15:55] VITALS: BP 137/73
[2023-07-28] MEDS: LOVENOX 40 MG SC (16:36)
[2023-07-28] MEDS: DEPAKOTE ER (24 HR RELEASE) 500 MG PO (22:36)
[2023-07-28] MEDS: MELATONIN 3 MG PO (22:37)
[2023-07-28] MEDS: DESYREL 50 MG PO (22:37)
[2023-07-28] MEDS: LIPITOR 20 MG PO (22:38)
[2023-07-28] MEDS: CLOZARIL 300 MG PO (22:38)
[2023-07-28 23:43] VITALS: BP 138/78
[2023-07-29] MEDS: SYNTHROID 50 MCG PO (06:18)
[2023-07-29 07:34] VITALS: BP 138/82
[2023-07-29] MEDS: ASPIR LOW (ENTERIC COATED) 81 MG PO (08:07)
[2023-07-29] MEDS: SYMMETREL 100 MG PO ×2 (08:07→19:54)
[2023-07-29] MEDS: FEOSOL 325 MG PO (08:08)
[2023-07-29] MEDS: ZOLOFT 25 MG PO (08:09)
[2023-07-29] MEDS: GLUCOPHAGE 1000 MG PO ×2 (08:09→15:33)
[2023-07-29] MEDS: DELTASONE 30 MG PO (08:09)
[2023-07-29] MEDS: CLOZARIL 50 MG PO (08:10)
[2023-07-29] MEDS: PEPCID 20 MG PO ×2 (08:10→19:54)
[2023-07-29] MEDS: KLONOPIN 0.75 MG PO ×3 (08:10→21:29)
[2023-07-29] MEDS: NORVASC 10 MG PO (08:10)
[2023-07-29] MEDS: COLACE 100 MG PO ×2 (08:10→19:54)
[2023-07-29] MEDS: DITROPAN 5 MG PO ×2 (08:10→19:54)
[2023-07-29] MEDS: MIRALAX 17 GRAMS PO (08:11)
[2023-07-29] MEDS: LACTAID 1 CAPSULE PO ×3 (08:20→17:23)
--- NOTE | 2023-07-29 08:29 | W.PN.HOSP.TC ---
Today's Communication/Plan
-
Continue current management. Discharge planning in progress
Assessment / Plan
Assessment / Plan
Physical Exam
General: No pallor, cyanosis, or jaundice. Obese
HEENT: Throat clear. PERRLA Normocephalic atraumatic
NECK: Supple. No JVD Carotid Bruits
RESPIRATORY: wheezing
CVS: sinus tachy
ABDOMEN: Soft, non-tender. No distension. BS+/normal.
EXTREMITIES: No peripheral cyanosis or edema.
COMMUNITY DEVELOPMENT MANAGER: AOx1 oriented to person only verbal but doesn't always make sense (appears near baseline per prior physician eval)
A/P:
#Flu
#Asthma exacerbation
Telemetry can be d/c'ed
Nebulizer Xopenex 3 times daily instead of albuterol due to tachycardia, patient since improved, xopenex converted to prn
Tamiflu --> completed 5 days
IV steroids changed to oral as below
Currently prednisone down to 30 mg p.o. daily. Will taper down tomorrow to 20 mg and then stop.
#Constipation
Continue bowel regimen
#Hypertension
Continue home amlodipine with holding parameters
#Hypothyroidism
Continue home Synthroid
#Schizophrenia
Continue home clonazepam clonidine sertraline trazodone valproate
home klonopin reduced to 0.75 mg TID from 1 mg due to lethargy, continue 0.75
area operations manager request psychiatry evaluation for placement--> psychiatry consult reviewed and appreciated.
#Overactive bladder
Continue oxybutynin
PT OT eval SNF rehab
Case management consult discharge planning
DVT prophylaxis Lovenox
GI prophylaxis Famotidine
Medically stable for discharge SNF rehab pending placement
Anticipated Discharge: 24 - 48 hours
Subjective/Interval History
-
Date of Service: July 29, 2023
Patient denies any new complaints.
Objective Data
-
Vital Signs:
Vital Signs
Temp Pulse Resp BP Pulse Ox
97.7 F 64 17 138/82 95
07/29/23 07:34 07/29/23 07:34 07/29/23 07:34 07/29/23 07:34 07/29/23 07:34
I&O
07/28/23 07/29/23 07/30/23
06:59 06:59 06:59
Intake Total 1380 / 1380 1080 / 1080
Output Total 2450 / 2450 850 / 850
Balance -1070 / -1070 230 / 230
[2023-07-29 15:32] VITALS: BP 153/56
[2023-07-29] MEDS: LOVENOX 40 MG SC (17:24)
[2023-07-29] MEDS: CLOZARIL 300 MG PO (21:30)
[2023-07-29] MEDS: DEPAKOTE ER (24 HR RELEASE) 500 MG PO (21:31)
[2023-07-29] MEDS: MELATONIN 3 MG PO (21:31)
[2023-07-29] MEDS: DESYREL 50 MG PO (21:31)
[2023-07-29] MEDS: LIPITOR 20 MG PO (21:31)
[2023-07-29 23:15] VITALS: BP 134/74
[2023-07-30 00:08] VITALS: BP 134/74
[2023-07-30 03:00] VITALS: BP 139/86
[2023-07-30] MEDS: SYNTHROID 50 MCG PO (06:49)
--- NOTE | 2023-07-30 06:50 | W.PN.HOSP.TC ---
Today's Communication/Plan
-
Medically stable awaiting placement SNF rehab
Assessment / Plan
Assessment / Plan
Physical Exam
General: No pallor, cyanosis, or jaundice. Obese
HEENT: Throat clear. PERRLA Normocephalic atraumatic
NECK: Supple. No JVD Carotid Bruits
RESPIRATORY: clear to auscultation b/l
CVS:NSR
ABDOMEN: Soft, non-tender. No distension. BS+/normal.
EXTREMITIES: No peripheral cyanosis or edema.
PRINTED FORMS PROOFREADER: Awake alert conversant
A/P:
#Flu
#Asthma exacerbation
Telemetry can be d/c'ed
Nebulizer Xopenex 3 times daily instead of albuterol due to tachycardia, patient since improved, xopenex converted to prn
Tamiflu --> completed 5 days
IV steroids changed to oral as below
Currently prednisone down to 30 mg p.o. daily. Will taper down tomorrow to 20 mg and then stop.
#Constipation
Continue bowel regimen
#Hypertension
Continue home amlodipine with holding parameters
#Hypothyroidism
Continue home Synthroid
#Schizophrenia
Continue home clonazepam clonidine sertraline trazodone valproate
home klonopin reduced to 0.75 mg TID from 1 mg due to lethargy, continue 0.75
chemistry account manager request psychiatry evaluation for placement--> psychiatry consult reviewed and appreciated.
#Overactive bladder
Continue oxybutynin
PT OT eval SNF rehab
Case management consult discharge planning
DVT prophylaxis Lovenox
GI prophylaxis Famotidine
Medically stable for discharge SNF rehab pending placement
Discussed with primary contact Shira (director at patient's residential facility)
I spent a total of 40 minutes with the patient or on the floor. More than 50% of this time involved counseling and coordination of care.
Anticipated Discharge: Within 24 hours
Subjective/Interval History
-
Date of Service: July 30, 2023
No acute distress. Sitting up comfortably in chair. Denies new acute issues.
Objective Data
-
Vital Signs:
Vital Signs
Temp Pulse Resp BP Pulse Ox
98.5 F 69 18 134/74 95
07/29/23 23:15 07/29/23 23:15 07/29/23 23:15 07/29/23 23:15 07/29/23 23:15
I&O
07/28/23 07/29/23 07/30/23
06:59 06:59 06:59
Intake Total 1380 / 1380 1080 / 1080 900 / 900
Output Total 2450 / 2450 850 / 850 2700 / 2700
Balance -1070 / -1070 230 / 230 -1800 / -1800
[2023-07-30 07:00] VITALS: BP 137/76
[2023-07-30] MEDS: LACTAID 1 CAPSULE PO ×3 (08:32→17:20)
[2023-07-30] MEDS: SYMMETREL 100 MG PO ×2 (08:32→19:33)
[2023-07-30] MEDS: DITROPAN 5 MG PO ×2 (08:32→19:33)
[2023-07-30] MEDS: ASPIR LOW (ENTERIC COATED) 81 MG PO (08:32)
[2023-07-30] MEDS: ZOLOFT 25 MG PO (08:33)
[2023-07-30] MEDS: NORVASC 10 MG PO (08:33)
[2023-07-30] MEDS: COLACE 100 MG PO ×2 (08:33→19:33)
[2023-07-30] MEDS: GLUCOPHAGE 1000 MG PO ×2 (08:33→13:06)
[2023-07-30] MEDS: DELTASONE 20 MG PO (08:33)
[2023-07-30] MEDS: KLONOPIN 0.75 MG PO ×3 (08:33→21:19)
[2023-07-30] MEDS: FEOSOL 325 MG PO (08:33)
[2023-07-30] MEDS: CLOZARIL 50 MG PO (08:33)
[2023-07-30] MEDS: MIRALAX 17 GRAMS PO (08:34)
[2023-07-30] MEDS: PEPCID 20 MG PO ×2 (08:46→19:33)
--- NOTE | 2023-07-30 11:49 | CM ---
Addendum entered by LORAINE Fish 07/30/23 16:59:
Received voice mail back from Kaela who stated that Flores Pierre would be in today to evaluate patient. Flores came in and stated that she will finish her evaluation today and send letter tomorrow. Will call [facility] to confirm bed
availability. All necessary documents have been sent over. This was confirmed by Flores.
Original Note:
Placed a call to Kaela at the [facility] to confirm receipt of documents relating to level 2 assessment. Had to leave a voice mail. Requested return call. Will call her again if no return call has been received.
Plan: Case management will continue to follow and assist with discharge planning. Transfer to [facility] upon medical clearance and clearance from [facility].
[2023-07-30 12:55] VITALS: BP 129/66; BP 139/66; PULSE 81; PULSE 84; O2SAT 97
[2023-07-30 15:00] VITALS: BP 139/86
[2023-07-30] MEDS: LOVENOX 40 MG SC (17:20)
[2023-07-30] MEDS: DEPAKOTE ER (24 HR RELEASE) 500 MG PO (21:17)
[2023-07-30] MEDS: CLOZARIL 300 MG PO (21:17)
[2023-07-30] MEDS: LIPITOR 20 MG PO (21:17)
[2023-07-30] MEDS: MELATONIN 3 MG PO (21:17)
[2023-07-30] MEDS: DESYREL 50 MG PO (21:19)
[2023-07-30 23:43] VITALS: BP 147/83
[2023-07-31] MEDS: SYNTHROID 50 MCG PO (06:02)
[2023-07-31 07:00] VITALS: BP 136/68
--- NOTE | 2023-07-31 07:53 | W.PN.HOSP.TC ---
Addendum entered and electronically signed by Kahlil Kaur MD 07/31/23 16:26:
This patient has met the criteria for a 30 day exception at a residential facility.
Original Note:
Today's Communication/Plan
-
discharge
Assessment / Plan
Assessment / Plan
Physical Exam
General: No pallor, cyanosis, or jaundice. Obese
HEENT: Throat clear. PERRLA Normocephalic atraumatic
NECK: Supple. No JVD Carotid Bruits
RESPIRATORY: clear to auscultation b/l
CVS:NSR
ABDOMEN: Soft, non-tender. No distension. BS+/normal.
EXTREMITIES: No peripheral cyanosis or edema.
CLINICAL REVIEW NURSE: Awake alert conversant
A/P:
#Flu
#Asthma exacerbation
Nebulizer Xopenex 3 times daily instead of albuterol due to tachycardia, patient since improved, xopenex converted to prn later dc'd and home prn inhaler resumed
Tamiflu --> completed 5 days
IV steroids tapered gradually to 20 mg daily x2 days, no significant respiratory symptoms will discontinue on discharge.
#Constipation
Continue bowel regimen
#Hypertension
Continue home amlodipine with holding parameters
#Hypothyroidism
Continue home Synthroid
#Schizophrenia
Continue home clonazepam clonidine sertraline trazodone valproate
home klonopin reduced to 0.75 mg TID from 1 mg due to lethargy, continue 0.75
project manager interior design request psychiatry evaluation for placement--> psychiatry consult reviewed and appreciated.
#Overactive bladder
Continue oxybutynin
PT OT eval SNF rehab
Case management consult appreciated
DVT prophylaxis Lovenox
GI prophylaxis Famotidine
Medically stable for discharge SNF rehab with outpatient follow up recommendations
Left message for primary contact Shira (director at patient's residential facility) along with call back number
Discussed with guardian Gwyn
Total Time Preparing Discharge ____45___ minutes including examination of the patient, summary of the hospital stay, instructions for continuing care to all relevant caregivers; and preparation of discharge records, prescriptions, and referral
forms if necessary.
Anticipated Discharge: Today
Subjective/Interval History
-
Date of Service: July 31, 2023
Seen and examined at bedside in no acute distress sitting up comfortably in chair. No new acute issues. Reports overall feeling well.
Objective Data
-
Vital Signs:
Vital Signs
Temp Pulse Resp BP Pulse Ox
97.6 F 75 18 136/68 95
07/31/23 07:00 07/31/23 07:00 07/31/23 07:00 07/31/23 07:00 07/31/23 07:00
I&O
07/30/23 07/31/23 08/01/23
06:59 06:59 06:59
Intake Total 900 / 900 1760 / 1760
Output Total 2700 / 2700 1300 / 1300
Balance -1800 / -1800 460 / 460
[2023-07-31] MEDS: FEOSOL 325 MG PO (08:24)
[2023-07-31] MEDS: MIRALAX 17 GRAMS PO (08:24)
[2023-07-31] MEDS: SYMMETREL 100 MG PO (08:24)
[2023-07-31] MEDS: ASPIR LOW (ENTERIC COATED) 81 MG PO (08:24)
[2023-07-31] MEDS: PEPCID 20 MG PO (08:24)
[2023-07-31] MEDS: COLACE 100 MG PO (08:24)
[2023-07-31] MEDS: DITROPAN 5 MG PO (08:24)
[2023-07-31] MEDS: ZOLOFT 25 MG PO (08:24)
[2023-07-31] MEDS: GLUCOPHAGE 1000 MG PO ×2 (08:24→15:14)
[2023-07-31] MEDS: CLOZARIL 50 MG PO (08:25)
[2023-07-31] MEDS: DELTASONE 20 MG PO (08:25)
[2023-07-31] MEDS: NORVASC 10 MG PO (08:25)
[2023-07-31] MEDS: KLONOPIN 0.75 MG PO ×2 (08:25→15:14)
[2023-07-31] MEDS: LACTAID 1 CAPSULE PO ×3 (08:32→16:30)
--- NOTE | 2023-07-31 10:35 | CM ---
Addendum entered by Shira Low [facility] 07/31/23 16:24:
Received request from admissions liason Jolanta, that the following phrase is written by the attending ' The patient has met criteria for a 30 day exception at a residential facility' Spoke with attending who stated that he will amend this to the
discharge summary.
Addendum entered by Shira Low [facility] 07/31/23 15:38:
Received return call from Jolanta in admissions at [facility] that upper management will not take patient due to potential behaviors however [place] would take her. # For report [phone] fax [phone].
Manager Clinical Research updated.
Niru at [facility] updated.
New transfer sheet completed.
Addendum entered by Shira Low [facility] 07/31/23 12:58:
Placed a call to patient's CM at [facility], Niru, to update. She stated that she will continue to follow over at [facility]. She did not vocalize any objections to discharge.
Addendum entered by Shira Low [facility] 07/31/23 12:11:
Received return call from Jolanta who stated that she has a bed at [facility] #for report [phone] and fax# [phone]. Attending updated as well as community placement worker.
Original Note:
Placed a call to [facility] and spoke with Shantal in admissions who stated that she does not currently have a bed for patient and expressed her apologies. Placed a call to Jolanta in admissions at [facility], [facility] and
[place] to determine if she has a bed at any of her facilities. She stated that she will review referral and return call to .
Received a return call back from Jolanta who confirmed acceptance at [facility]
Plan: Case management will continue to follow and assist with discharge planning/transfer to [facility].
--- NOTE | 2023-07-31 12:52 | W.DCSUMMARY ---
Discharge Summary
Discharge Data
Date of Admission: 07/19/23
Date of Discharge: 07/31/23
-
Pending Results: No
Hospital Course
Poor historian most if not all history from records ED sign out and primary contact report. 62 female [id number] diabetes schizophrenia, from [facility], hypertension, hypothyroidism, asthma presented with
generalized weakness exertional dyspnea wheezing reported fever unclear onset.� Patient reported that she had bad shortness of breath fever for a 'long time.'� Afebrile during evaluation here.� Shortness of breath was noted to improve following
DuoNeb therapy.� However, patient exhibited significant exertional dyspnea desaturating to 80s on ambulation prompting referral for admission.� Patient awake alert oriented only to self.� Discussed with patient's primary contact Shira, onset of
shortness of breath start in the morning triggering prompt referral to ED.� No recent fever was noted. CXR noted atelectasis otherwise no acute abn's.� Labs noted mild microcytic anemia.� Patient was found to be Flu positive. Treated for Flu and
asthma exacerbation, Nebulizer Xopenex was provided 3 times daily instead of albuterol due to tachycardia, patient since improved, xopenex converted to prn later dc'd and home prn albuterol inhaler was resumed. 5 days Tamiflu completed. Patient was
gradually tapered off steroids prior to discharge. Home Klonopin was tapered due to oversedation. PT/OT evaluated and recommended SNF rehab. Stay was protracted with discharge planning, SNF placement, and level II assessment. Medically stable,
patient was discharged to SNF rehab with outpatient follow up recommendations
Discharge Plan
-
Patient Disposition: Fdc/SNF
Discharge Diagnosis/Procedures: Flu
Asthma Exacerbation
Non-insulin dependent diabetes
Schizophrenia
Hypertension
Hyperlipidemia
Overactive Bladder
Mild Iron Deficiency Anemia
Condition: Fair
Diet: Regular
Activity: With assistance, As tolerated and With Walker
Driving Restrictions: No driving
Bathing Restrictions: None
Blood Work: Please repeat iron studies with primary care provider in 1 month of discharge
Other Services: PT and OT
Activity Restrictions/Additional Instructions:
Please follow up with primary care provider in 1 week of discharge.
Iron supplementation started for mild iron deficiency anemia.
Please take medications as prescribed/recommended and follow up with primary care provider and/or other healthcare provider involved in your care for refills and/or further adjustments to your medication regimen as necessary.
Referrals:
PRIVATE,PHYSICIAN [Family Provider] - in one week
Additional Discharge Medication Instructions: Klonopin reduced to 0.75 mg three times a day as oppose to 1 mg due to over sedation. Recommended to further taper to 0.5 mg TID. Please follow up with primary care provider and/or other healthcare
provider involved in your care before considering to resume prior dose.
Prescriptions:
New
ferrous sulfate [FeroSul] 325 mg (65 mg iron) Tablet
325 mg PO DAILY 30 Days Qty: 30 0RF
clonazepam 0.5 mg tablet
0.5 mg PO TID Qty: 6 0RF
Continued
metformin 500 mg tablet
1,000 mg PO BID@0800,1400
acetaminophen 325 mg Tablet
325 - 650 mg PO Q6H PRN (Reason: mild pain/fever)
trazodone 50 mg tablet
50 mg PO HS
clozapine 100 mg tablet
300 mg PO HS
Tums 300 mg (750 mg) Tablet,Chewable
300 - 600 mg PO QID PRN (Reason: indigestion/heartburn)
melatonin 3 mg Tablet
3 mg PO HS
aspirin 81 mg Tablet,Delayed Release (Dr/Ec)
81 mg PO DAILY
amantadine HCl 100 mg capsule
100 mg PO BID
simvastatin 40 mg tablet
40 mg PO HS
famotidine 20 mg Tablet
20 mg PO Q12H PRN (Reason: heartburn/gi issues)
amlodipine 10 mg tablet
10 mg PO DAILY
levothyroxine 50 mcg tablet
50 mcg PO DAILY
divalproex 500 mg tablet extended release 24 hr
500 mg PO HS
sertraline 25 mg tablet
25 mg PO DAILY
albuterol sulfate 90 mcg/actuation Hfa Aerosol Inhaler
2 puff INHALATION R Q4HPRN PRN (Reason: sob/wheezing)
oxybutynin chloride 5 mg tablet
5 mg PO BID
Dairy Relief 9,000 unit Tablet,Chewable
9,000 - 18,000 unit PO AC
clozapine 50 mg tablet
50 mg PO DAILY
Discontinued
clonazepam 1 mg tablet
1 mg PO TID
Discharge Orders:
Discharge Patient (As Directed); Ordered 07/31/23
Ordered By: Kahlil Kaur
Discharge Date and Time
Discharge Date/Time: 07/31/23 17:20
[2023-07-31] MEDS: ProAIR HFA INHALER 2 PUFF INH (13:00)
[2023-07-31 15:00] VITALS: BP 133/81
--- NOTE | 2023-07-31 16:39 | PTCARENOTE ---
Report given to Beny at [facility]. Azeb MARSHALL notified transport company of location change.
== END 2023-07-31 17:20 | DRG 202 ==
LOC: 3 WEST ACU 19:11
PROVIDERS: Hospitalist; Physician Assistant; ADMITTING PHYSICIAN Internal Medicine; EMERGENCY PHYSICIAN Emergency Medicine; OTHER PHYSICIAN Psychiatry & Neurology Psychiatry
DX: J45.901 Unspecified asthma with (acute) exacerbation (principal); J98.11 Atelectasis; Z11.52 Encounter for screening for COVID-19; Z87.891 Personal history of nicotine dependence; D50.9 Iron deficiency anemia, unspecified; I10 Essential (primary) hypertension; E03.9 Hypothyroidism, unspecified; F20.9 Schizophrenia, unspecified; N32.81 Overactive bladder; E11.9 Type 2 diabetes mellitus without complications; Z79.84 Long term (current) use of oral hypoglycemic drugs; E78.5 Hyperlipidemia, unspecified; J11.1 Influenza due to unidentified influenza virus with other respiratory manifestations
CPT/HCPCS: 71046; 80048; 80053; 81003; 81015; 82607; 82746; 83540; 83550; 83605; 83735; 84443; 85014; 85018; 85025; 85027; 87070; 87086; 87502; 87811; 94640; 94761; 96374; 97116; 97163; 97167; 97530; 97535; 99285